=== PATIENT | male | born 1970 | race Caucasian/White ===

== ENCOUNTER 2016-10-13 10:01 | Emergency (ER) | payer OTHER ==
[~2016-10-13] VITALS: Ht 180.3 cm; Wt 103.1 kg
[~2016-10-13 10:01] MED LIST: ALLERGY RELIEF10 M1 PO; BENADRYL25 MG PO; CARVEDILOL6.25 MG PO; CELEXA10 MG PO; CITALOPRAM HBR20 MG PO; COLACE100 MG PO; COREG6.25 M1 PO; DILAUDID2 MG PO; ESCITALOPRAM OX10 MG PO; FLONASE ALLERG9.9 ML BOTH NARES; GABAPENTIN100 MG PO; GABAPENTIN400 MG PO; HYDROXYZINE PAM25 MG PO; HYDROXYZINE PAM50 MG PO; LISINOPRIL PO; LISINOPRIL10 MG PO; MIRALAX17 GM PO; MOBIC PO; MOBIC7.5 MG PO; MOTRIN600 MG PO; MOTRIN800 MG PO; NEURONTIN100 MG PO; NEXIUM PO; NEXIUM20 MG PO; NORCO 5/3251 TABLET PO; NORCO 7.5/321 TABLET PO; OXYCODONE-APAP1 EACH PO; PERCOCET 10/1 TABLET PO; PERCOCET 5/31 TABLET PO; TRAZODONE HCL50 MG PO; TYLENOL WITH C1 EACH PO; WELLBUTRIN75 MG PO; ZOFRAN ODT4 MG PO
[2016-10-13 10:34] LABS: HEMATOCRIT 47.6 % (38.0-50.0); MCH 33.2 PG (29.0-34.0); MCV 100.6 FL (86-99); MEAN PLAT.VOLUME 9.8 uM^3 (9.0-12.4); PLATELET COUNT 249 K/uL (156-360); RBC DIS.WIDTH-CV 11.9 % (11.8-14.6); RBC DIS.WIDTH-SD 44.9 % (39-53); RED BLOOD COUNT 4.73 M/uL (4.00-5.50)
[2016-10-13 10:44] LABS: ADD MIUA? NO; BILIRUBIN NEGATIVE; BLOOD NEGATIVE; COLOR YELLOW ((YELLOW)); GLUCOSE (STRIP) NEGATIVE; KETONES NEGATIVE; LEUKOCYTES NEGATIVE; NITRITE NEGATIVE; PROTEIN (STRIP) NEGATIVE; UCUL ADDED? NO; UROBILINOGEN 0.2 MG/DL (0.2-1.0)
[2016-10-13 10:49] LABS: CHLORIDE 107 mEq/L (99-109); POTASSIUM 4.5 mEq/L (3.7-5.4); SODIUM 140 mEq/L (136-147)
[2016-10-13 10:51] LABS: GLUCOSE 123 mg/dL (70-99)
[2016-10-13 10:52] LABS: ANION GAP 6 MEQ/L (2-14)
[2016-10-13 10:53] LABS: TOTAL BILIRUBIN 1.1 mg/dL (0.0-1.0)
[2016-10-13 10:54] LABS: ALKALINE PHOSPHATASE 64 IU/L (3-129)
[2016-10-13 10:55] LABS: GFR ESTIMATE (CALCULATED) > 59 mL/min/
[2016-10-13 10:56] LABS: UREA NITROGEN (BUN) 14 mg/dL (9-23)
[2016-10-13 10:58] LABS: LIPASE 31 U/L (1.0-51.0)
[2016-10-13] MEDS ORDERED: ZOFRAN4 MG PO (11:35)
[2016-10-13] MEDS ORDERED: CIPRO500 MG PO (11:35)
[2016-10-13] MEDS ORDERED: FLAGYL500 MG PO (11:35)
[2016-10-13 11:49] VITALS: BP 142/89
== END 2016-10-13 11:50 | disposition home or self-care (01) ==
LOC: EME 10:01 → RME 10:01
DX: K43.9 Ventral hernia without obstruction or gangrene (principal); K52.9 Noninfective gastroenteritis and colitis, unspecified; G89.29 Other chronic pain; K21.9 Gastro-esophageal reflux disease without esophagitis; Z87.442 Personal history of urinary calculi; Z86.74 Personal history of sudden cardiac arrest
CPT/HCPCS: 74176; 80053; 81003; 83690; 85027; 99281; 99284

== ENCOUNTER 2016-11-08 10:10 | Emergency (ER) | payer OTHER ==
[~2016-11-08] VITALS: Ht 180.3 cm; Wt 104.6 kg
[~2016-11-08 10:10] MED LIST changes: +CIPRO500 MG PO; +FLAGYL500 MG PO; +ZOFRAN4 MG PO
[2016-11-08 10:23] VITALS: BP 163/121
[2016-11-08] MEDS ORDERED: NORCO 5/3251 TABLET PO (11:51)
[2016-11-08] MEDS ORDERED: VALIUM5 MG PO (11:51)
== END 2016-11-08 12:04 | disposition home or self-care (01) ==
LOC: EME 10:10
DX: M54.5 Low back pain (principal); I10 Essential (primary) hypertension; K42.9 Umbilical hernia without obstruction or gangrene; Z98.1 Arthrodesis status
CPT/HCPCS: 99281; 99284

== ENCOUNTER 2016-11-15 11:14 | Emergency (ER) | payer OTHER ==
[~2016-11-15] VITALS: Ht 180.3 cm; Wt 107.2 kg
[~2016-11-15 11:14] MED LIST changes: +VALIUM5 MG PO
[2016-11-15 12:27] LABS: HEMATOCRIT 48.5 % (38.0-50.0); MCH 32.2 PG (29.0-34.0); MCHC 33.6 G/DL (30.0-36.0); MCV 95.8 FL (86-99); PLATELET COUNT 267 K/uL (156-360); RBC DIS.WIDTH-CV 11.9 % (11.8-14.6); RBC DIS.WIDTH-SD 41.6 % (39-53); RED BLOOD COUNT 5.06 M/uL (4.00-5.50); WHITE BLOOD COUNT 6.2 K/uL (4.1-10.2)
[2016-11-15 12:38] LABS: CHLORIDE 105 mEq/L (99-109); POTASSIUM 4.7 mEq/L (3.7-5.4); SODIUM 142 mEq/L (136-147)
[2016-11-15 12:40] LABS: GLUCOSE 93 mg/dL (70-99)
[2016-11-15 12:41] LABS: ANION GAP 12 MEQ/L (2-14)
[2016-11-15 12:44] LABS: GFR ESTIMATE (CALCULATED) > 59 mL/min/; UREA NITROGEN (BUN) 10 mg/dL (9-23)
[2016-11-15 12:47] LABS: TROP-I INTERPRETATION NEGATIVE; TROPONIN-I < 0.01 ng/mL (0.0-0.30)
[2016-11-15] MEDS ORDERED: REGLAN10 MG PO (16:25)
[2016-11-15] MEDS ORDERED: BENTYL20 MG PO (16:25)
[2016-11-15] MEDS ORDERED: CARAFATE1 GM PO (16:25)
[2016-11-15] MEDS ORDERED: ULTRAM50 MG PO (16:25)
[2016-11-15 16:48] VITALS: BP 142/95
== END 2016-11-15 16:51 | disposition home or self-care (01) ==
LOC: EME 11:14
DX: R10.9 Unspecified abdominal pain (principal); K21.9 Gastro-esophageal reflux disease without esophagitis; Z87.442 Personal history of urinary calculi; Z86.74 Personal history of sudden cardiac arrest
CPT/HCPCS: 71020; 74177; 80048; 84484; 85027; 93005; 99281; 99285; J2270; J2765; J7030

== ENCOUNTER 2016-12-13 08:07 | Day surgery (SDC) | payer OTHER ==
[~2016-12-13] VITALS: Ht 182.9 cm; Wt 110.2 kg
[~2016-12-13 08:07] MED LIST changes: +BENTYL20 MG PO; +CARAFATE1 GM PO; +REGLAN10 MG PO; +ULTRAM50 MG PO; +ZESTRIL20 MG PO
[2016-12-13 08:44] VITALS: BP 137/83
[2016-12-13 09:55] LABS: METH RESISTANT S AUREUS PCR NEGATIVE (NEGATIVE)
[2016-12-13 09:56] LABS: PROBE CHECK PASS; SPECIMEN PROCESSING CONTROL PASS
[2016-12-13] MEDS ORDERED: PERCOCET 5/31 TABLET PO (10:27)
[2016-12-13 13:50] VITALS: BP 127/84
[2016-12-13 15:05] VITALS: BP 133/79
[2016-12-14] MEDS ORDERED: PERCOCET 5/31 TABLET PO (12:30)
== END 2016-12-13 15:30 | disposition home or self-care (01) ==
LOC: SDC 08:07
PROVIDERS: Surgery
PROC: 0WUF4JZ Supplement Abdominal Wall with Synthetic Substitute, Percutaneous Endoscopic Approach (ICD-10-PCS; principal; 2016-12-13)
DX: K43.6 Other and unspecified ventral hernia with obstruction, without gangrene (principal); I10 Essential (primary) hypertension; K21.9 Gastro-esophageal reflux disease without esophagitis; F41.8 Other specified anxiety disorders; Z83.49 Family history of other endocrine, nutritional and metabolic diseases; Z88.2 Allergy status to sulfonamides
CPT/HCPCS: 87641; C1781; J0330; J0690; J1170; J1885; J2405; J3010